=== PATIENT | female | born 1945 | race Caucasian/White ===

== ENCOUNTER 2017-05-24 05:54 | Inpatient (IN) ==
[~2017-05-24 05:54] MED LIST: VANCOMYCIN 500 MG VIAL IRRIG ONE
[2017-05-24] MEDS ORDERED: VANCOMYCIN 500 MG VIAL IRRIG ONE (06:00)
[2017-05-24] MEDS ORDERED: VANCOMYCIN INJ 1,000 MG in SODIUM CHLORIDE 0.9% 250 ML IV ONE ×2 (06:00→22:12)
[2017-05-24 07:27] LABS: Basophils # 0.1 10*3/uL (0.0-0.2); Basophils % 0.9 % (0.0-0.8); Eosinophils # 0.1 10*3/uL (0.0-0.87); Eosinophils % 2.1 % (0.00-10.9); Hemoglobin 9.7 GM/DL (12.0-16.0); Immature Granulocytes % 0.4 %; Immature Granulocytes Absolute 0.02 #; Lymphocytes # 1.7 10*3/uL (1.4-4.0); Lymphocytes % 31.4 % (21.3-54.2); Mean Corpuscular HGB Conc 32.3 GM/DL (32-36); Mean Corpuscular Hemoglobin 28 PG (27-34); Mean Corpuscular Volume 87.7 FL (87-102); Mean Platelet Volume 9.3 FL (9.6-12.0); Monocytes # 0.6 10*3/uL (0.11-0.8); Monocytes % 11.4 % (1.7-12.7); Neutrophils # 2.9 10*3/uL (1.4-7.4); Neutrophils % 53.8 % (38.7-73.9); Platelet Count 208 T/CUMM (130-400); Red Blood Count 3.42 MC/CUMM (3.8-5.5); Red Cell Distribution Width 13.7 % (9.3-17.3); White Blood Count 5.4 T/CUMM (4-12)
[2017-05-24 07:53] LABS: Calcium 8.8 MG/DL (8.5-10.1); Magnesium 2.1 MG/DL (1.8-2.4); Potassium 4.1 MMOL/L (3.5-5.1)
[2017-05-24] MEDS ORDERED: LIDOCAINE 1% 20 ML VIAL ONE (07:57)
[2017-05-24] MEDS ORDERED: VANCOMYCIN 500 MG VIAL ONE ×2 (07:58)
[2017-05-24] MEDS ORDERED: HEPARIN/NACL 0.9% 2 UNITS/ML 1,000 ML IV ONE (08:01)
[2017-05-24] MEDS ORDERED: TISSUE ADHESIVE 1 EACH APPLICATOR TOP ONE (10:08)
[2017-05-24] MEDS ORDERED: ACETAMINOPHEN 325 MG TABLET ONE (11:03)
[2017-05-24] MEDS ORDERED: ACETAMINOPHEN 325 MG TABLET PO ONE (11:10)
[2017-05-24] MEDS ORDERED: fentaNYL 100 MCG/2 ML VIAL ONE (12:25)
[2017-05-24] MEDS ORDERED: LACTATED RINGERS 1,000 ML IV ONE (12:26)
[2017-05-24] MEDS ORDERED: SODIUM CHLORIDE 0.9% 500 ML IV ONE (12:26)
[2017-05-24] MEDS ORDERED: ONDANSETRON 4 MG/2 ML VIAL ONE (12:26)
[2017-05-24] MEDS ORDERED: MIDAZOLAM 2 MG/2 ML VIAL ONE (12:26)
[2017-05-24] MEDS ORDERED: PROPOFOL 200 MG/20 ML VIAL IV ONE (12:26)
[2017-05-24] MEDS ORDERED: SEVOFLURANE 1 UNIT/15 MINUTE INH ONE (12:26)
[2017-05-24] MEDS ORDERED: PHENYLEPHRINE 50 MG/5 ML VIAL ONE (12:27)
[2017-05-24] MEDS: oxyCODONE/ACETAMINOPHEN 5-325 MG TABLET PO PRN ×2 (16:54→20:46)
[2017-05-24] MEDS: AMITRIPTYLINE 25 MG TABLET PO SCH (20:45)
[2017-05-24] MEDS: CARVEDILOL 25 MG TABLET PO SCH (20:55)
[2017-05-24] MEDS: SACUBITRIL/VALSARTAN 49-51 MG TABLET PO SCH (20:55)
[2017-05-25] MEDS: oxyCODONE/ACETAMINOPHEN 5-325 MG TABLET PO PRN ×3 (01:57→21:22)
[2017-05-25] MEDS ORDERED: FUROSEMIDE 40 MG/4 ML VIAL IV ONE (04:09)
[2017-05-25 05:22] LABS: Hemoglobin 9.2 GM/DL (12.0-16.0); Red Blood Count 3.29 MC/CUMM (3.8-5.5)
[2017-05-25 05:23] LABS: Basophils % 0.5 % (0.0-0.8); Eosinophils # 0.2 10*3/uL (0.0-0.87); Eosinophils % 2.3 % (0.00-10.9); Immature Granulocytes % 0.5 %; Immature Granulocytes Absolute 0.04 #; Lymphocytes # 1.5 10*3/uL (1.4-4.0); Lymphocytes % 18.2 % (21.3-54.2); Mean Corpuscular HGB Conc 30.7 GM/DL (32-36); Mean Corpuscular Hemoglobin 28 PG (27-34); Mean Corpuscular Volume 91.2 FL (87-102); Mean Platelet Volume 10.5 FL (9.6-12.0); Monocytes # 0.9 10*3/uL (0.11-0.8); Monocytes % 10.9 % (1.7-12.7); Neutrophils # 5.4 10*3/uL (1.4-7.4); Neutrophils % 67.6 % (38.7-73.9); Platelet Count 179 T/CUMM (130-400); Red Cell Distribution Width 14.1 % (9.3-17.3)
[2017-05-25 05:44] LABS: Calcium 7.7 MG/DL (8.5-10.1); Magnesium 1.9 MG/DL (1.8-2.4); Osmolality,Calculated 277.7 MOS/KG (273-304); Potassium 4.4 MMOL/L (3.5-5.1)
[2017-05-25 05:47] LABS: Giant Platelets Few; Hypochromasia 1+; Ovalocytes Slight; Platelet Estimate Normal
[2017-05-25] MEDS ORDERED: FUROSEMIDE 20 MG TABLET PO SCH (09:00)
[2017-05-25] MEDS: FLUoxetine 20 MG CAPSULE PO SCH (09:04)
[2017-05-25] MEDS: LEVOFLOXACIN 750 MG TABLET PO SCH (09:04)
[2017-05-25] MEDS: ASPIRIN 325 MG TABLET PO SCH (09:04)
[2017-05-25] MEDS: DIGOXIN 0.125 MG TABLET PO SCH (09:05)
[2017-05-25] MEDS: CARVEDILOL 25 MG TABLET PO SCH (09:05)
[2017-05-25] MEDS: SPIRONOLACTONE 25 MG TABLET PO SCH (09:05)
[2017-05-25] MEDS: AMIODARONE 200 MG TABLET PO SCH (09:05)
[2017-05-25] MEDS: FUROSEMIDE 40 MG TABLET PO SCH ×2 (09:05→17:01)
[2017-05-25] MEDS: SACUBITRIL/VALSARTAN 49-51 MG TABLET PO SCH ×2 (09:06→21:09)
[2017-05-25] MEDS: ALBUTEROL 1.25 MG/3 ML NEB RESP TX SCH (20:33)
[2017-05-25] MEDS: AMITRIPTYLINE 25 MG TABLET PO SCH (21:09)
[2017-05-26] MEDS: CARVEDILOL 25 MG TABLET PO SCH ×3 (00:50→21:05)
[2017-05-26] MEDS: CLINDAMYCIN 300 MG CAPSULE PO SCH ×5 (00:53→23:33)
[2017-05-26] MEDS: ALBUTEROL 1.25 MG/3 ML NEB RESP TX SCH ×3 (07:53→19:28)
[2017-05-26] MEDS: FUROSEMIDE 40 MG TABLET PO SCH ×2 (08:58→17:01)
[2017-05-26] MEDS: FLUoxetine 20 MG CAPSULE PO SCH (08:58)
[2017-05-26] MEDS: SACUBITRIL/VALSARTAN 49-51 MG TABLET PO SCH ×2 (08:58→21:05)
[2017-05-26] MEDS: DIGOXIN 0.125 MG TABLET PO SCH (08:59)
[2017-05-26] MEDS: ASPIRIN 325 MG TABLET PO SCH (08:59)
[2017-05-26] MEDS: AMIODARONE 200 MG TABLET PO SCH (09:00)
[2017-05-26] MEDS: ONDANSETRON 4 MG/2 ML VIAL IV PRN ×2 (09:00→14:13)
[2017-05-26] MEDS: SPIRONOLACTONE 25 MG TABLET PO SCH (09:00)
[2017-05-26] MEDS: LEVOFLOXACIN 750 MG TABLET PO SCH (09:00)
[2017-05-26] MEDS: RIVAROXABAN 20 MG TABLET PO SCH (12:11)
[2017-05-26 13:01] LABS: ABG Base Excess 0.1 MMOL/L (-2.5-2.5); ABG HCO3 25.4 MMOL/L (20-26); ABG Oxygen Saturation 85.6 % (95-100); ABG PCO2 44.6 MM HG (35-48); ABG PH 7.374 (7.35-7.45); ABG PO2 52.6 MM HG (80-95); ABG TCO2 26.8 MMOL/L (23-27)
[2017-05-26] MEDS: oxyCODONE/ACETAMINOPHEN 5-325 MG TABLET PO PRN (17:11)
[2017-05-26] MEDS: AMITRIPTYLINE 25 MG TABLET PO SCH (21:05)
[2017-05-27] MEDS: ALBUTEROL 1.25 MG/3 ML NEB RESP TX SCH ×4 (00:37→20:46)
[2017-05-27] MEDS: oxyCODONE/ACETAMINOPHEN 5-325 MG TABLET PO PRN ×2 (01:00→05:57)
[2017-05-27 05:19] LABS: Calcium 8.2 MG/DL (8.5-10.1); Osmolality,Calculated 269.4 MOS/KG (273-304); Potassium 3.9 MMOL/L (3.5-5.1)
[2017-05-27] MEDS: CLINDAMYCIN 300 MG CAPSULE PO SCH ×3 (05:57→17:50)
[2017-05-27 06:02] LABS: Basophils % 0.3 % (0.0-0.8); Eosinophils # 0.1 10*3/uL (0.0-0.87); Eosinophils % 1.1 % (0.00-10.9); Hematocrit 26.7 VOL% (35.7-47.0); Hemoglobin 8.5 GM/DL (12.0-16.0); Immature Granulocytes % 0.7 %; Immature Granulocytes Absolute 0.06 #; Lymphocytes # 1.1 10*3/uL (1.4-4.0); Lymphocytes % 12.1 % (21.3-54.2); Mean Corpuscular HGB Conc 31.8 GM/DL (32-36); Mean Corpuscular Hemoglobin 28 PG (27-34); Mean Corpuscular Volume 88.1 FL (87-102); Mean Platelet Volume 10.5 FL (9.6-12.0); Monocytes # 1.1 10*3/uL (0.11-0.8); Monocytes % 12.5 % (1.7-12.7); Neutrophils # 6.4 10*3/uL (1.4-7.4); Neutrophils % 73.3 % (38.7-73.9); Platelet Count 181 T/CUMM (130-400); Red Blood Count 3.03 MC/CUMM (3.8-5.5); White Blood Count 8.8 T/CUMM (4-12)
[2017-05-27] MEDS: ASPIRIN 325 MG TABLET PO SCH (08:52)
[2017-05-27] MEDS: CARVEDILOL 25 MG TABLET PO SCH ×2 (08:52→21:23)
[2017-05-27] MEDS: LEVOFLOXACIN 750 MG TABLET PO SCH (08:52)
[2017-05-27] MEDS: DIGOXIN 0.125 MG TABLET PO SCH (08:53)
[2017-05-27] MEDS: AMIODARONE 200 MG TABLET PO SCH (08:53)
[2017-05-27] MEDS: SACUBITRIL/VALSARTAN 49-51 MG TABLET PO SCH ×2 (08:53→21:23)
[2017-05-27] MEDS: SPIRONOLACTONE 25 MG TABLET PO SCH (08:53)
[2017-05-27] MEDS: FUROSEMIDE 40 MG TABLET PO SCH (08:53)
[2017-05-27] MEDS: FLUoxetine 20 MG CAPSULE PO SCH (08:53)
[2017-05-27] MEDS: RIVAROXABAN 20 MG TABLET PO SCH (08:53)
[2017-05-27] MEDS ORDERED: metOLazone 5 MG TABLET PO SCH (11:00)
[2017-05-27] MEDS ORDERED: FUROSEMIDE 40 MG/4 ML VIAL IV SCH (16:00)
[2017-05-27] MEDS: AMITRIPTYLINE 25 MG TABLET PO SCH (21:23)
[2017-05-27 23:48] LABS: ABG Base Excess 2.8 MMOL/L (-2.5-2.5); ABG HCO3 26.8 MMOL/L (20-26); ABG Oxygen Saturation 86.8 % (95-100); ABG PCO2 43.6 MM HG (35-48); ABG PH 7.411 (7.35-7.45); ABG PO2 52.1 MM HG (80-95); ABG TCO2 25.8 MMOL/L (23-27)
[2017-05-28] MEDS: ALBUTEROL 1.25 MG/3 ML NEB RESP TX SCH ×4 (01:11→19:33)
[2017-05-28] MEDS: CLINDAMYCIN 300 MG CAPSULE PO SCH ×4 (02:01→18:00)
[2017-05-28] MEDS: oxyCODONE/ACETAMINOPHEN 5-325 MG TABLET PO PRN (02:01)
[2017-05-28 08:10] LABS: Basophils % 0.3 % (0.0-0.8); Eosinophils % 0.3 % (0.00-10.9); Hematocrit 25.1 VOL% (35.7-47.0); Hemoglobin 8.1 GM/DL (12.0-16.0); Immature Granulocytes % 0.5 %; Immature Granulocytes Absolute 0.05 #; Lymphocytes % 8.8 % (21.3-54.2); Mean Corpuscular HGB Conc 32.3 GM/DL (32-36); Mean Corpuscular Hemoglobin 28 PG (27-34); Mean Corpuscular Volume 87.8 FL (87-102); Mean Platelet Volume 9.6 FL (9.6-12.0); Monocytes # 1.3 10*3/uL (0.11-0.8); Monocytes % 11.9 % (1.7-12.7); Neutrophils # 8.6 10*3/uL (1.4-7.4); Neutrophils % 78.2 % (38.7-73.9); Platelet Count 193 T/CUMM (130-400); Red Blood Count 2.86 MC/CUMM (3.8-5.5); White Blood Count 10.9 T/CUMM (4-12)
[2017-05-28 08:57] LABS: Calcium 7.8 MG/DL (8.5-10.1); Magnesium 1.9 MG/DL (1.8-2.4); Osmolality,Calculated 275.2 MOS/KG (273-304); Potassium 4.4 MMOL/L (3.5-5.1)
[2017-05-28] MEDS: RIVAROXABAN 20 MG TABLET PO SCH (09:40)
[2017-05-28] MEDS: ASPIRIN 325 MG TABLET PO SCH (09:40)
[2017-05-28] MEDS: DIGOXIN 0.125 MG TABLET PO SCH (09:40)
[2017-05-28] MEDS: LEVOFLOXACIN 750 MG TABLET PO SCH (09:41)
[2017-05-28] MEDS: FLUoxetine 20 MG CAPSULE PO SCH (09:41)
[2017-05-28] MEDS: methylPREDNISolone SOD SUC 40 MG/1 ML VIAL IV SCH ×4 (12:30→23:26)
[2017-05-28] MEDS: SPIRONOLACTONE 25 MG TABLET PO SCH (13:17)
[2017-05-28] MEDS: SACUBITRIL/VALSARTAN 49-51 MG TABLET PO SCH (13:19)
[2017-05-28] MEDS: CARVEDILOL 25 MG TABLET PO SCH (13:19)
[2017-05-28] MEDS: DOPamine 800 MG/250 ML PREMIX IV SCH (17:05)
[2017-05-28] MEDS ORDERED: HEPARIN/NACL 0.9% 2 UNITS/ML 500 ML IV ONE (17:06)
[2017-05-28] MEDS ORDERED: PHENYLEPHRINE DRIP 40 MG/250 ML PREMIX IV ONE ×2 (17:42→19:58)
[2017-05-28] MEDS ORDERED: PHENYLEPHRINE DRIP 40 MG/250 ML PREMIX IV SCH ×2 (17:42→20:47)
[2017-05-28 17:45] LABS: ABG Base Excess -1.1 MMOL/L (-2.5-2.5); ABG HCO3 25.5 MMOL/L (20-26); ABG Oxygen Saturation 83.4 % (95-100); ABG PCO2 51.4 MM HG (35-48); ABG PH 7.313 (7.35-7.45); ABG TCO2 27.1 MMOL/L (23-27)
[2017-05-28] MEDS: PHENYLEPHRINE INJ 160 MG in SODIUM CHLORIDE 0.45% 250 ML IV SCH ×2 (17:45→21:53)
[2017-05-28] MEDS ORDERED: LORazepam 2 MG/1 ML VIAL IV ONE (17:58)
[2017-05-28] MEDS ORDERED: LORazepam 2 MG/1 ML VIAL ONE (18:00)
[2017-05-28] MEDS ORDERED: PHENYTOIN INJ 1,000 MG in SODIUM CHLORIDE 0.9% 100 ML IV ONE (18:02)
[2017-05-28 19:42] LABS: ABG Base Excess -0.5 MMOL/L (-2.5-2.5); ABG HCO3 25.9 MMOL/L (20-26); ABG Oxygen Saturation 79.3 % (95-100); ABG PCO2 50.8 MM HG (35-48); ABG PH 7.326 (7.35-7.45); ABG PO2 46.1 MM HG (80-95); ABG TCO2 27.5 MMOL/L (23-27)
[2017-05-28 19:42] LABS: Basophils % 0.1 % (0.0-0.8); Hematocrit 30.4 VOL% (35.7-47.0); Hemoglobin 9.9 GM/DL (12.0-16.0); Immature Granulocytes % 1.6 %; Immature Granulocytes Absolute 0.36 #; Lymphocytes # 0.9 10*3/uL (1.4-4.0); Lymphocytes % 3.9 % (21.3-54.2); Mean Corpuscular HGB Conc 32.6 GM/DL (32-36); Mean Corpuscular Hemoglobin 29 PG (27-34); Mean Corpuscular Volume 87.6 FL (87-102); Mean Platelet Volume 9.8 FL (9.6-12.0); Monocytes # 1.4 10*3/uL (0.11-0.8); Monocytes % 6.3 % (1.7-12.7); NRBC # 0.13 10*3/uL; Neutrophils # 20.1 10*3/uL (1.4-7.4); Neutrophils % 88.1 % (38.7-73.9); Platelet Count 278 T/CUMM (130-400); Red Blood Count 3.47 MC/CUMM (3.8-5.5); Red Cell Distribution Width 14.3 % (9.3-17.3); White Blood Count 22.8 T/CUMM (4-12)
[2017-05-28] MEDS ORDERED: NOREPINEPHRINE 4 MG in SODIUM CHLORIDE 0.9% 246 ML IV SCH (20:00)
[2017-05-28] MEDS: PROPOFOL 1,000 MG/100 ML BOTTLE IV SCH (20:03)
[2017-05-28 20:04] LABS: Anisocytosis 1+; INR 2.5; Lymphocytes 3 % (20-55); Macrocytosis Slight; Poikilocytosis 1+; Segmented Neutrophils 90 % (50-85); Tear Drop Cells Few; Total Cells Counted 100
[2017-05-28 20:05] LABS: Ovalocytes Few; Platelet Estimate Adequate; Polychromasia Slight
[2017-05-28 20:06] LABS: PT Patient Result 25.7 SECS; Partial Thromboplastin Time 42.8 SECS (0-40)
[2017-05-28 20:14] LABS: Lactic Acid 7.1 MMOL/L (0.4-2.0)
[2017-05-28] MEDS ORDERED: MAGNESIUM SULF RIDER 1 GM in PREMIX 1 EACH IV PRN (20:15)
[2017-05-28] MEDS ORDERED: POTASSIUM CHLORIDE RIDER 20 MEQ in PREMIX 1 EACH IV PRN (20:15)
[2017-05-28] MEDS: CISATRACURIUM 200 MG in SODIUM CHLORIDE 0.9% 100 ML IV SCH (20:26)
[2017-05-28] MEDS ORDERED: fentaNYL INJ 2,500 MCG in SODIUM CHLORIDE 0.9% 500 ML IV SCH (20:30)
[2017-05-28] MEDS: SODIUM CHLORIDE 0.9% 1,000 ML IV SCH (20:36)
[2017-05-28] MEDS: fentaNYL INJ 2,500 MCG in SODIUM CHLORIDE 0.9% 500 ML IV SCH (20:45)
[2017-05-28 20:57] LABS: Alanine Aminotransferase 3225 U/L (13-56); Albumin 2.1 G/DL (3.4-5.0); Alkaline Phosphatase 111 U/L (45-117); Amylase 153 U/L (25-115); Aspartate Amino Transferase 8344 U/L (0-37); Blood Urea Nitrogen 44 MG/DL (7-18); Calcium 7.5 MG/DL (8.5-10.1); Glucose 155 MG/DL (74-106); Magnesium 2.2 MG/DL (1.8-2.4); Potassium 4.7 MMOL/L (3.5-5.1); Sodium 136 MMOL/L (136-145)
[2017-05-28] MEDS: NOREPINEPHRINE 8 MG in SODIUM CHLORIDE 0.9% 242 ML IV SCH (20:59)
[2017-05-28 21:00] LABS: Troponin I Only 0.084 NG/ML (0.00-0.045)
[2017-05-28] MEDS: MIDAZOLAM 100 MG in SODIUM CHLORIDE 0.9% 80 ML IV SCH (22:13)
[2017-05-28] MEDS: AMITRIPTYLINE 25 MG TABLET PO SCH (22:13)
[2017-05-29] MEDS: ALBUTEROL 1.25 MG/3 ML NEB RESP TX SCH ×4 (00:12→20:22)
[2017-05-29] MEDS: CLINDAMYCIN 300 MG CAPSULE PO SCH (00:19)
[2017-05-29] MEDS: INSULIN REGULAR 100 UNIT/ML IV SCH ×7 (00:33→21:56)
[2017-05-29] MEDS: DOPamine 800 MG/250 ML PREMIX IV SCH ×2 (00:54→21:44)
[2017-05-29 00:58] LABS: Lactic Acid 8.2 MMOL/L (0.4-2.0)
[2017-05-29] MEDS: PHENYTOIN 100 MG/2 ML VIAL IV SCH ×3 (01:18→17:31)
[2017-05-29] MEDS: CLINDAMYCIN INJ 600 MG in PREMIX 1 EACH IV SCH ×3 (01:18→22:40)
[2017-05-29 02:18] LABS: ABG HCO3 19.4 MMOL/L (20-26); ABG Oxygen Saturation 91.4 % (95-100); ABG PCO2 48.4 MM HG (35-48); ABG PO2 74.9 MM HG (80-95); ABG TCO2 19.9 MMOL/L (23-27)
[2017-05-29 02:37] LABS: Apearance,Urine CLOUDY (Clear); Bilirubin,Urine Negative (Negative); Blood, Urine Large mg/dL (Negative); Glucose,Urine (UA) 50 mg/dL (Negative); Ketones,Urine Negative (Negative); Nitrite,Urine Negative (Negative); Protein,Urine >=500 MG/DL; RBC,Urine 562 /HPF (0-4); Urine Color Amber (Yellow); Urine Specific Gravity 1.013 (1.001-1.035); Urine Urobilinogen < 2.0 EU/DL (0.2-1.0); WBC,Urine 31 /HPF (0-6)
[2017-05-29 03:05] LABS: Troponin I Only 0.136 NG/ML (0.00-0.045)
[2017-05-29] MEDS: SODIUM CHLORIDE 0.9% 1,000 ML IV SCH ×3 (04:04→17:19)
[2017-05-29 04:09] LABS: ABG Base Excess -5.2 MMOL/L (-2.5-2.5); ABG Oxygen Saturation 90.1 % (95-100); ABG PCO2 51.6 MM HG (35-48); ABG PH 7.244 (7.35-7.45); ABG PO2 72.2 MM HG (80-95); ABG TCO2 20.9 MMOL/L (23-27)
[2017-05-29] MEDS: methylPREDNISolone SOD SUC 40 MG/1 ML VIAL IV SCH ×4 (04:23→22:49)
[2017-05-29 04:25] LABS: Basophils # 0.1 10*3/uL (0.0-0.2); Basophils % 0.2 % (0.0-0.8); Immature Granulocytes % 2.2 %; Immature Granulocytes Absolute 0.68 #; Lymphocytes # 0.4 10*3/uL (1.4-4.0); Lymphocytes % 1.4 % (21.3-54.2); Mean Corpuscular HGB Conc 32.1 GM/DL (32-36); Mean Corpuscular Hemoglobin 28 PG (27-34); Mean Corpuscular Volume 87.8 FL (87-102); Mean Platelet Volume 10.2 FL (9.6-12.0); Monocytes # 1.1 10*3/uL (0.11-0.8); Monocytes % 3.5 % (1.7-12.7); NRBC # 0.07 10*3/uL; Neutrophils # 28.1 10*3/uL (1.4-7.4); Neutrophils % 92.7 % (38.7-73.9); Platelet Count 250 T/CUMM (130-400); Red Blood Count 3.19 MC/CUMM (3.8-5.5); Red Cell Distribution Width 14.2 % (9.3-17.3); White Blood Count 30.3 T/CUMM (4-12)
[2017-05-29 04:33] LABS: Partial Thromboplastin Time 39.2 SECS (0-40)
[2017-05-29 04:38] LABS: INR 3.8
[2017-05-29 04:43] LABS: Lactic Acid 8.5 MMOL/L (0.4-2.0)
[2017-05-29 04:51] LABS: Calcium 7.2 MG/DL (8.5-10.1); Magnesium 2.1 MG/DL (1.8-2.4); Osmolality,Calculated 293.8 MOS/KG (273-304); Potassium 3.4 MMOL/L (3.5-5.1)
[2017-05-29 04:53] LABS: PT Patient Result 37.9 SECS
[2017-05-29 04:55] LABS: Band Neutrophils 6 % (0-10); Myelocytes 2 %; Nucleated Red Blood Cells 2 (0-5); Segmented Neutrophils 90 % (50-85)
[2017-05-29 04:56] LABS: Platelet Estimate Normal; Total Cells Counted 100
[2017-05-29] MEDS: FLUoxetine 20 MG CAPSULE PO SCH (08:18)
[2017-05-29] MEDS: RIVAROXABAN 20 MG TABLET PO SCH (08:18)
[2017-05-29] MEDS: ASPIRIN 325 MG TABLET PO SCH (08:18)
[2017-05-29] MEDS: PANTOPRAZOLE 40 MG VIAL IV SCH (08:18)
[2017-05-29] MEDS: PHENYLEPHRINE INJ 160 MG in SODIUM CHLORIDE 0.45% 234 ML IV SCH ×2 (08:49→18:02)
[2017-05-29] MEDS ORDERED: FUROSEMIDE 40 MG TABLET PO SCH (09:00)
[2017-05-29] MEDS: CEFTAROLINE 200 MG in SODIUM CHLORIDE 0.9% 50 ML IV SCH ×2 (09:54→21:52)
[2017-05-29 09:59] LABS: Basophils % 0.1 % (0.0-0.8); Hematocrit 27.6 VOL% (35.7-47.0); Immature Granulocytes % 0.9 %; Immature Granulocytes Absolute 0.24 #; Lymphocytes # 0.6 10*3/uL (1.4-4.0); Lymphocytes % 2.3 % (21.3-54.2); Mean Corpuscular HGB Conc 32.6 GM/DL (32-36); Mean Corpuscular Hemoglobin 29 PG (27-34); Mean Corpuscular Volume 87.9 FL (87-102); Mean Platelet Volume 10.1 FL (9.6-12.0); Monocytes # 0.8 10*3/uL (0.11-0.8); NRBC # 0.12 10*3/uL; Neutrophils # 24.5 10*3/uL (1.4-7.4); Neutrophils % 93.7 % (38.7-73.9); Platelet Count 239 T/CUMM (130-400); Red Blood Count 3.14 MC/CUMM (3.8-5.5); Red Cell Distribution Width 14.4 % (9.3-17.3); White Blood Count 26.1 T/CUMM (4-12)
[2017-05-29 10:16] LABS: Partial Thromboplastin Time 39.5 SECS (0-40)
[2017-05-29 10:18] LABS: Band Neutrophils 5 % (0-10); Lymphocytes 1 % (20-55); Segmented Neutrophils 92 % (50-85); Total Cells Counted 100
[2017-05-29 10:19] LABS: Hypochromasia 1+; Polychromasia Slight
[2017-05-29 10:20] LABS: Macrocytosis Slight; Tear Drop Cells Slight
[2017-05-29 10:21] LABS: Platelet Estimate Normal
[2017-05-29 10:22] LABS: INR 4.4; PT Patient Result 44.1 SECS
[2017-05-29 10:31] LABS: Blood Urea Nitrogen 53 MG/DL (7-18); Glucose 194 MG/DL (74-106); Magnesium 1.9 MG/DL (1.8-2.4); Osmolality,Calculated 291.8 MOS/KG (273-304); Potassium 3.2 MMOL/L (3.5-5.1); Sodium 137 MMOL/L (136-145)
[2017-05-29 10:35] LABS: Lactic Acid 7.3 MMOL/L (0.4-2.0)
[2017-05-29] MEDS: PROPOFOL 1,000 MG/100 ML BOTTLE IV SCH ×2 (12:07→20:04)
[2017-05-29] MEDS: EPINEPHRINE IV SCH (13:43)
[2017-05-29] MEDS: SODIUM CHLORIDE 0.45% IV SCH ×2 (13:43→20:03)
[2017-05-29] MEDS: MINERAL OIL/PETROLATUM OPH OINT 3.5 GM TUBE BOTH EYES SCH ×2 (14:16→21:51)
[2017-05-29 16:16] LABS: Basophils % 0.1 % (0.0-0.8); Hematocrit 26.9 VOL% (35.7-47.0); Hemoglobin 8.8 GM/DL (12.0-16.0); Immature Granulocytes % 1.1 %; Lymphocytes # 0.6 10*3/uL (1.4-4.0); Lymphocytes % 2.4 % (21.3-54.2); Mean Corpuscular HGB Conc 32.7 GM/DL (32-36); Mean Corpuscular Hemoglobin 29 PG (27-34); Mean Corpuscular Volume 87.3 FL (87-102); Mean Platelet Volume 10.1 FL (9.6-12.0); Monocytes # 1.3 10*3/uL (0.11-0.8); NRBC # 0.13 10*3/uL; Neutrophils # 24.1 10*3/uL (1.4-7.4); Neutrophils % 91.4 % (38.7-73.9); Platelet Count 220 T/CUMM (130-400); Red Blood Count 3.08 MC/CUMM (3.8-5.5); Red Cell Distribution Width 14.3 % (9.3-17.3); White Blood Count 26.3 T/CUMM (4-12)
[2017-05-29 16:33] LABS: PT Patient Result 65.1 SECS; Partial Thromboplastin Time 41.5 SECS (0-40)
[2017-05-29 16:34] LABS: INR 6.6
[2017-05-29 16:48] LABS: CKMB % 2.2 %; Lactic Acid 4.4 MMOL/L (0.4-2.0)
[2017-05-29 16:49] LABS: Troponin I Only 0.058 NG/ML (0.00-0.045)
[2017-05-29 17:19] LABS: Blood Urea Nitrogen 54 MG/DL (7-18); Calcium 6.7 MG/DL (8.5-10.1); Glucose 124 MG/DL (74-106); Osmolality,Calculated 292.5 MOS/KG (273-304); Potassium 3.8 MMOL/L (3.5-5.1); Sodium 139 MMOL/L (136-145)
[2017-05-29 19:01] LABS: Band Neutrophils 5 % (0-10); Hypochromasia Slight; Lymphocytes 4 % (20-55); Nucleated Red Blood Cells 1 (0-5); Platelet Estimate Normal; Segmented Neutrophils 90 % (50-85); Total Cells Counted 100
[2017-05-29] MEDS: DOPAMINE IV SCH (20:03)
[2017-05-29] MEDS: NOREPINEPHRINE 8 MG in SODIUM CHLORIDE 0.9% 242 ML IV SCH (20:06)
[2017-05-29] MEDS: CISATRACURIUM 200 MG in SODIUM CHLORIDE 0.9% 100 ML IV SCH (21:44)
[2017-05-29 21:45] LABS: Basophils % 0.1 % (0.0-0.8); Hematocrit 26.8 VOL% (35.7-47.0); Hemoglobin 8.7 GM/DL (12.0-16.0); Immature Granulocytes % 0.8 %; Immature Granulocytes Absolute 0.21 #; Lymphocytes # 0.7 10*3/uL (1.4-4.0); Lymphocytes % 2.7 % (21.3-54.2); Mean Corpuscular HGB Conc 32.5 GM/DL (32-36); Mean Corpuscular Hemoglobin 28 PG (27-34); Mean Corpuscular Volume 87.3 FL (87-102); Mean Platelet Volume 10.2 FL (9.6-12.0); Monocytes # 1.1 10*3/uL (0.11-0.8); Monocytes % 4.3 % (1.7-12.7); NRBC # 0.17 10*3/uL; Neutrophils # 23.1 10*3/uL (1.4-7.4); Neutrophils % 92.1 % (38.7-73.9); Platelet Count 220 T/CUMM (130-400); Red Blood Count 3.07 MC/CUMM (3.8-5.5); Red Cell Distribution Width 14.3 % (9.3-17.3); White Blood Count 25.1 T/CUMM (4-12)
[2017-05-29] MEDS: fentaNYL INJ 2,500 MCG in SODIUM CHLORIDE 0.9% 500 ML IV SCH (21:45)
[2017-05-29] MEDS: MIDAZOLAM 100 MG in SODIUM CHLORIDE 0.9% 80 ML IV SCH (21:45)
[2017-05-29 22:00] LABS: Blood Urea Nitrogen 60 MG/DL (7-18); Calcium 6.6 MG/DL (8.5-10.1); Glucose 92 MG/DL (74-106); Magnesium 1.9 MG/DL (1.8-2.4); Osmolality,Calculated 293.5 MOS/KG (273-304); Potassium 4.1 MMOL/L (3.5-5.1); Sodium 139 MMOL/L (136-145)
[2017-05-29 22:01] LABS: PT Patient Result 90.7 SECS; Partial Thromboplastin Time 47.9 SECS (0-40)
[2017-05-29 22:03] LABS: INR 9.3
[2017-05-29 22:05] LABS: CKMB % 2.2 %
[2017-05-29 22:06] LABS: Troponin I Only 0.05 NG/ML (0.00-0.045)
[2017-05-29] MEDS ORDERED: SODIUM CHLORIDE 0.9% 1,000 ML IV PRN (22:22)
[2017-05-29 23:19] LABS: Band Neutrophils 3 % (0-10); Lymphocytes 3 % (20-55); Myelocytes 1 %; Segmented Neutrophils 90 % (50-85)
[2017-05-29 23:20] LABS: Platelet Estimate Normal; Total Cells Counted 100
[2017-05-30] MEDS: ALBUTEROL 1.25 MG/3 ML NEB RESP TX SCH ×4 (00:53→19:45)
[2017-05-30] MEDS: INSULIN REGULAR 100 UNIT/ML IV SCH ×11 (00:59→21:46)
[2017-05-30] MEDS: SODIUM CHLORIDE 0.9% 1,000 ML IV SCH ×5 (01:00→20:14)
[2017-05-30] MEDS: PHENYTOIN 100 MG/2 ML VIAL IV SCH ×3 (01:10→17:24)
[2017-05-30 02:32] LABS: ABG HCO3 18.6 MMOL/L (20-26); ABG Oxygen Saturation 88.2 % (95-100); ABG PCO2 45.8 MM HG (35-48); ABG PH 7.248 (7.35-7.45); ABG PO2 65.8 MM HG (80-95)
[2017-05-30 03:54] LABS: Basophils % 0.1 % (0.0-0.8); Hematocrit 24.3 VOL% (35.7-47.0); Hemoglobin 7.7 GM/DL (12.0-16.0); Immature Granulocytes % 1.1 %; Immature Granulocytes Absolute 0.26 #; Lymphocytes # 0.5 10*3/uL (1.4-4.0); Lymphocytes % 2.2 % (21.3-54.2); Mean Corpuscular HGB Conc 31.7 GM/DL (32-36); Mean Corpuscular Hemoglobin 28 PG (27-34); Mean Platelet Volume 10.1 FL (9.6-12.0); Monocytes # 1.2 10*3/uL (0.11-0.8); Monocytes % 4.8 % (1.7-12.7); NRBC # 0.32 10*3/uL; Neutrophils # 22.6 10*3/uL (1.4-7.4); Neutrophils % 91.8 % (38.7-73.9); Platelet Count 224 T/CUMM (130-400); Red Blood Count 2.76 MC/CUMM (3.8-5.5); Red Cell Distribution Width 14.4 % (9.3-17.3); White Blood Count 24.6 T/CUMM (4-12)
[2017-05-30 04:04] LABS: INR 4.3; Partial Thromboplastin Time 36.4 SECS (0-40)
[2017-05-30 04:17] LABS: ABG Base Excess -7.8 MMOL/L (-2.5-2.5); ABG Oxygen Saturation 89.8 % (95-100); ABG PCO2 47.6 MM HG (35-48); ABG PO2 72.3 MM HG (80-95); ABG TCO2 18.2 MMOL/L (23-27)
[2017-05-30] MEDS: methylPREDNISolone SOD SUC 40 MG/1 ML VIAL IV SCH ×4 (04:22→21:37)
[2017-05-30] MEDS: PHENYLEPHRINE INJ 160 MG in SODIUM CHLORIDE 0.45% 234 ML IV SCH ×3 (04:32→20:21)
[2017-05-30 04:35] LABS: Lactic Acid 5.3 MMOL/L (0.4-2.0)
[2017-05-30 04:40] LABS: Band Neutrophils 3 % (0-10); Myelocytes 3 %; Nucleated Red Blood Cells 3 (0-5); Segmented Neutrophils 94 % (50-85); Total Cells Counted 100
[2017-05-30 04:41] LABS: Anisocytosis 1+; Hypochromasia 1+; Platelet Estimate Normal
[2017-05-30] MEDS: DOPAMINE IV SCH ×2 (04:47→17:23)
[2017-05-30] MEDS: SODIUM CHLORIDE 0.45% IV SCH ×3 (04:47→17:23)
[2017-05-30 05:02] LABS: Calcium 6.8 MG/DL (8.5-10.1); Osmolality,Calculated 291.5 MOS/KG (273-304); Potassium 4.6 MMOL/L (3.5-5.1)
[2017-05-30] MEDS: fentaNYL INJ 2,500 MCG in SODIUM CHLORIDE 0.9% 450 ML IV SCH (07:31)
[2017-05-30] MEDS: CLINDAMYCIN INJ 600 MG in PREMIX 1 EACH IV SCH ×2 (08:34→21:21)
[2017-05-30] MEDS: PANTOPRAZOLE 40 MG VIAL IV SCH (08:34)
[2017-05-30] MEDS: MINERAL OIL/PETROLATUM OPH OINT 3.5 GM TUBE BOTH EYES SCH ×3 (08:44→20:11)
[2017-05-30] MEDS ORDERED: LEVOFLOXACIN 750 MG TABLET PO SCH (09:00)
[2017-05-30 10:10] LABS: Basophils % 0.1 % (0.0-0.8); Hematocrit 23.5 VOL% (35.7-47.0); Hemoglobin 7.5 GM/DL (12.0-16.0); Immature Granulocytes % 0.9 %; Immature Granulocytes Absolute 0.21 #; Lymphocytes # 0.4 10*3/uL (1.4-4.0); Lymphocytes % 1.7 % (21.3-54.2); Mean Corpuscular HGB Conc 31.9 GM/DL (32-36); Mean Corpuscular Hemoglobin 29 PG (27-34); Mean Corpuscular Volume 89.7 FL (87-102); Mean Platelet Volume 10.2 FL (9.6-12.0); Monocytes # 1.1 10*3/uL (0.11-0.8); Monocytes % 4.8 % (1.7-12.7); NRBC # 0.43 10*3/uL; Neutrophils # 21.3 10*3/uL (1.4-7.4); Neutrophils % 92.5 % (38.7-73.9); Platelet Count 227 T/CUMM (130-400); Red Blood Count 2.62 MC/CUMM (3.8-5.5); Red Cell Distribution Width 14.5 % (9.3-17.3)
[2017-05-30] MEDS ORDERED: SODIUM CHLORIDE 0.9% 1,000 ML IV PRN (10:17)
[2017-05-30 10:23] LABS: Partial Thromboplastin Time 36.4 SECS (0-40)
[2017-05-30 10:28] LABS: PT Patient Result 54.2 SECS
[2017-05-30 10:31] LABS: INR 5.5
[2017-05-30] MEDS: CEFTAROLINE 200 MG in SODIUM CHLORIDE 0.9% 50 ML IV SCH ×2 (10:32→20:11)
[2017-05-30 10:35] LABS: Burr Cells Slight; Giant Platelets Few; Hypochromasia 1+; Lymphocytes 1 % (20-55); Ovalocytes Slight; Platelet Estimate Adequate; Segmented Neutrophils 96 % (50-85); Total Cells Counted 100
[2017-05-30] MEDS ORDERED: ALBUTEROL 1.25 MG/3 ML NEB RESP TX ONE (11:03)
[2017-05-30 11:38] LABS: Blood Urea Nitrogen 59 MG/DL (7-18); Calcium 6.4 MG/DL (8.5-10.1); Glucose 64 MG/DL (74-106); Osmolality,Calculated 289.7 MOS/KG (273-304); Potassium 5.2 MMOL/L (3.5-5.1); Sodium 138 MMOL/L (136-145)
[2017-05-30] MEDS: DEXTROSE 50% 25 GM/50 ML VIAL IV PRN ×2 (12:21→13:54)
[2017-05-30] MEDS: EPINEPHRINE IV SCH (13:10)
[2017-05-30 15:56] LABS: Basophils % 0.2 % (0.0-0.8); Hematocrit 32.1 VOL% (35.7-47.0); Immature Granulocytes % 0.6 %; Immature Granulocytes Absolute 0.13 #; Lymphocytes # 0.6 10*3/uL (1.4-4.0); Lymphocytes % 2.8 % (21.3-54.2); Mean Corpuscular HGB Conc 32.7 GM/DL (32-36); Mean Corpuscular Hemoglobin 30 PG (27-34); Mean Corpuscular Volume 90.7 FL (87-102); Mean Platelet Volume 10.1 FL (9.6-12.0); Monocytes # 0.9 10*3/uL (0.11-0.8); Monocytes % 4.2 % (1.7-12.7); NRBC # 0.43 10*3/uL; Neutrophils # 19.2 10*3/uL (1.4-7.4); Neutrophils % 92.2 % (38.7-73.9); Platelet Count 209 T/CUMM (130-400); Red Blood Count 3.54 MC/CUMM (3.8-5.5); Red Cell Distribution Width 14.3 % (9.3-17.3); White Blood Count 20.8 T/CUMM (4-12)
[2017-05-30 16:07] LABS: Partial Thromboplastin Time 36.2 SECS (0-40)
[2017-05-30 16:08] LABS: Hemoglobin 10.5 GM/DL (12.0-16.0)
[2017-05-30 16:14] LABS: PT Patient Result 65.6 SECS
[2017-05-30 16:16] LABS: INR 6.7
[2017-05-30 17:02] LABS: Blood Urea Nitrogen 62 MG/DL (7-18); Calcium 6.4 MG/DL (8.5-10.1); Glucose 128 MG/DL (74-106); Magnesium 1.9 MG/DL (1.8-2.4); Osmolality,Calculated 294.7 MOS/KG (273-304); Potassium 5.1 MMOL/L (3.5-5.1); Sodium 138 MMOL/L (136-145)
[2017-05-30] MEDS: PROPOFOL 1,000 MG/100 ML BOTTLE IV SCH (18:15)
[2017-05-30 19:22] LABS: Lymphocytes 4 % (20-55); Nucleated Red Blood Cells 1 (0-5); Platelet Estimate Normal; Segmented Neutrophils 95 % (50-85); Total Cells Counted 100
[2017-05-30] MEDS: CISATRACURIUM 200 MG in SODIUM CHLORIDE 0.9% 100 ML IV SCH (19:31)
[2017-05-30] MEDS: NOREPINEPHRINE 8 MG in SODIUM CHLORIDE 0.9% 242 ML IV SCH (20:15)
[2017-05-30 20:49] LABS: Lactic Acid 6.9 MMOL/L (0.4-2.0)
[2017-05-31] MEDS: SODIUM CHLORIDE 0.9% 1,000 ML IV SCH ×3 (00:40→07:36)
[2017-05-31] MEDS: INSULIN REGULAR 100 UNIT/ML IV SCH ×5 (00:41→08:22)
[2017-05-31] MEDS: CISATRACURIUM 200 MG in SODIUM CHLORIDE 0.9% 100 ML IV SCH (00:46)
[2017-05-31] MEDS: ALBUTEROL 1.25 MG/3 ML NEB RESP TX SCH ×2 (01:19→07:40)
[2017-05-31] MEDS: PHENYTOIN 100 MG/2 ML VIAL IV SCH (02:10)
[2017-05-31 02:59] LABS: ABG Base Excess -11.7 MMOL/L (-2.5-2.5); ABG HCO3 15.1 MMOL/L (20-26); ABG Oxygen Saturation 88.5 % (95-100); ABG PCO2 34.7 MM HG (35-48); ABG PH 7.241 (7.35-7.45); ABG PO2 64.8 MM HG (80-95)
[2017-05-31 03:14] LABS: Basophils % 0.1 % (0.0-0.8); Hematocrit 26.7 VOL% (35.7-47.0); Hemoglobin 8.7 GM/DL (12.0-16.0); Immature Granulocytes % 0.7 %; Immature Granulocytes Absolute 0.13 #; Lymphocytes # 0.6 10*3/uL (1.4-4.0); Lymphocytes % 3.3 % (21.3-54.2); Mean Corpuscular HGB Conc 32.6 GM/DL (32-36); Mean Corpuscular Hemoglobin 30 PG (27-34); Mean Corpuscular Volume 90.8 FL (87-102); Monocytes # 1.2 10*3/uL (0.11-0.8); Monocytes % 6.5 % (1.7-12.7); Neutrophils # 16.7 10*3/uL (1.4-7.4); Neutrophils % 89.4 % (38.7-73.9); Platelet Count 179 T/CUMM (130-400); Red Blood Count 2.94 MC/CUMM (3.8-5.5); Red Cell Distribution Width 14.9 % (9.3-17.3); White Blood Count 18.7 T/CUMM (4-12)
[2017-05-31 03:32] LABS: Lactic Acid 7.1 MMOL/L (0.4-2.0)
[2017-05-31 03:35] LABS: INR 4.3
[2017-05-31 03:38] LABS: PT Patient Result 43.3 SECS
[2017-05-31 03:53] LABS: Band Neutrophils 8 % (0-10); Burr Cells Slight; Lymphocytes 13 % (20-55); Nucleated Red Blood Cells 1 (0-5); Platelet Estimate Normal; Segmented Neutrophils 75 % (50-85); Total Cells Counted 100
[2017-05-31 04:09] LABS: Calcium 6.1 MG/DL (8.5-10.1); Osmolality,Calculated 290.8 MOS/KG (273-304); Potassium 5.4 MMOL/L (3.5-5.1)
[2017-05-31 04:18] LABS: Phosphorous 8.4 MG/DL (2.5-4.9); Troponin I Only 0.028 NG/ML (0.00-0.045)
[2017-05-31] MEDS: PHENYLEPHRINE INJ 160 MG in SODIUM CHLORIDE 0.45% 234 ML IV SCH ×2 (04:32→07:12)
[2017-05-31] MEDS: DOPAMINE IV SCH (05:12)
[2017-05-31] MEDS: SODIUM CHLORIDE 0.45% IV SCH (05:12)
[2017-05-31] MEDS: methylPREDNISolone SOD SUC 40 MG/1 ML VIAL IV SCH (05:15)
[2017-05-31] MEDS: fentaNYL INJ 2,500 MCG in SODIUM CHLORIDE 0.9% 450 ML IV SCH (07:13)
[2017-05-31 08:16] VITALS: BP 76/29
[2017-05-31 08:29] LABS: Lactic Acid 6.8 MMOL/L (0.4-2.0)
== END 2017-05-31 08:43 | disposition expired | DRG 226 ==
LOC: N.CL 05:54 → N.TELEN 14:44 → N.CVR 05-28 17:36 → N.ICU 05-28 19:12
PROVIDERS: ADMIT Internal Medicine Clinical Cardiac Electrophysiology; ATTEND Internal Medicine Clinical Cardiac Electrophysiology